=== PATIENT | male | born 1975 | race Two or more races ===

== ENCOUNTER 2021-02-23 21:51 | Emergency (ER) | payer OTHER ==
[~2021-02-23] VITALS: Ht 170.2 cm; Wt 88.5 kg
[2021-02-23 22:21] VITALS: BP 117/67
--- NOTE | 2021-02-23 22:48 | NUR ---
PT IS MEDICALLY CLEARED FOR BOOKING AND RELEASED UNDER THE CARE OF [employer] OFFICERS. PT IS IN STABLE CONDITION. PT WAS PROVIDED WITH SEVERAL IN AND OUT CATHETER KITS PER MD ORDERED. PT PRESSURE ULCER ON HIS L HEEL ALSO PROVIDED WITH WOUND CARE.
--- NOTE | 2021-02-23 22:50 | NUR ---
PT LEFT ON HIS WHEELCHAIR WITH 2 [employer] OFFICERS.
== END 2021-02-23 22:52 ==
LOC: ER 22:02
DX: Z02.89 Encounter for other administrative examinations (principal); G82.20 Paraplegia, unspecified; L89.629 Pressure ulcer of left heel, unspecified stage; F17.210 Nicotine dependence, cigarettes, uncomplicated